=== PATIENT | male | born 1995 | race Caucasian/White ===

== ENCOUNTER 2019-01-12 00:50 | Emergency (ER) | payer BC ==
[~2019-01-12] VITALS: Ht 180.3 cm; Wt 72.6 kg
[2019-01-12 01:26] VITALS: BP 131/65
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
[2019-01-12] MEDS ORDERED: DEXAMETHASONE SOD PHOSPHATE 10 MG/ML VIAL IM ONE (01:30)
[2019-01-12] MEDS ORDERED: DEXAMETHASONE SOD PHOSPHATE 10 MG/ML VIAL ONE (01:32)
== END 2019-01-12 01:56 | disposition home or self-care (01) ==
LOC: ER 01:01
DX: T78.1XXA Other adverse food reactions, not elsewhere classified, initial encounter (principal); X58.XXXA Exposure to other specified factors, initial encounter
CPT/HCPCS: 96372; 99283; J1100